=== PATIENT | female | born 1965 | race Caucasian/White ===

== ENCOUNTER → 2016-07-24 | Outpatient (CLI) | payer OTHER ==
[~2016-07-24] VITALS: Ht 160 cm; Wt 134.7 kg
[~2016-07-24] MED LIST: ADULT LOW DOSE81 MG PO; ALLOPURINOL100 MG PO; ASPIRIN NON IR325 MG PO; ASPIRIN PO; Allopurinol PO; BUTALB-APAP-CA1 EACH PO; CALCIUM CITRAT1 EA16 PO; CELEBREX50 MG PO; CIPRO500 M1 PO; CO Q-10100 MG PO; COLCRYS0.6 MG PO; CYMBALTA60 MG PO; DICLOFENAC POTA50 MG PO; DIOVAN HCT 81 TABLET PO; DIOVAN80 MG PO; DOCUSATE SODIU100 MG PO; DOXYCYCLINE HY100 MG PO; ERGOCALCIF50000 UNIT PO; FIORICET,ESG1 TABLET PO; FUROSEMIDE40 MG PO; GLUCOPHAGE1000 MG PO; HUMALOG100 UNIT/1 PO; HUMALOG100 UNIT/1 SC; HYDROCODON-ACE1 EAC5 PO; HYDROCODON-ACE1 EAC9 PO; INVOKANA300 MG PO; IRON PO; IRON18 MG PO; IRON325 M1 PO; IRON325 MG PO; LANTUS (UNITS)1 UNIT SQ; LANTUS 10100 UNITS/ SC; LANTUS 3 M100 UNITS/ SC; LANTUS 3 M100 UNITS1 SC; LEVEMIR100 UNIT/2 SC; LIDOCAINE700 MG TD; LYRICA300 MG PO; LYRICA50 MG PO; LYRICA75 MG PO; MAGNESIUM250 MG PO; MAXIMUM DAILY1 EAC1 PO; MELOXICAM15 MG PO; METFORMIN HCL1000 MG PO; MONTELUKAST SOD10 MG PO; MORPHINE SULFAT15 M1 PO; MORPHINE SULFAT30 M2 PO; NOVOLOG PE100 UNITS/ SC; OMEPRAZOLE20 MG PO; OMEPRAZOLE40 M1 PO; PRILOSEC OTC20 MG PO; PROVERA,CYCRIN10 MG PO; SENNA8.6 MG PO; TANZEUM30 MG/0.5 SC; TRADJENTA5 MG PO; VALSARTAN-HCTZ1 EACH PO; VITAMIN B-121000 MCG PO; VITAMIN D250000 UNIT PO; VITAMIN D31000 UNIT PO; VITAMIN D35000 UNIT PO; VITAMIN D5000 UNIT PO; VITAMIN D50000 UNI1 PO; ZESTORETIC,P1 TABLE1 PO; ZOCOR20 MG PO; ZOCOR40 MG PO; ZOCOR80 MG PO
[2016-07-24 12:09] LABS: POINT-OF-CARE METER ID UU13113694
[2016-07-24 13:13] LABS: POINT-OF-CARE METER ID UU13113819; POINT-OF-CARE USER ID 515036437
== END | disposition home or self-care (01) ==
LOC: AMB 06-12 12:00
PROVIDERS: Internal Medicine Gastroenterology
DX: K21.9 Gastro-esophageal reflux disease without esophagitis (principal); Z68.43 Body mass index [BMI] 50.0-59.9, adult; K29.70 Gastritis, unspecified, without bleeding; K22.70 Barrett's esophagus without dysplasia; E11.40 Type 2 diabetes mellitus with diabetic neuropathy, unspecified; E78.5 Hyperlipidemia, unspecified; I10 Essential (primary) hypertension; E55.9 Vitamin D deficiency, unspecified; Z80.9 Family history of malignant neoplasm, unspecified; Z82.49 Family history of ischemic heart disease and other diseases of the circulatory system; Z83.3 Family history of diabetes mellitus; Z84.1 Family history of disorders of kidney and ureter; Z79.82 Long term (current) use of aspirin; Z79.4 Long term (current) use of insulin; Z88.5 Allergy status to narcotic agent
CPT/HCPCS: 82948; 88305; 88342 TC; J3010

== ENCOUNTER 2016-08-11 22:35 | Emergency (ER) | payer OTHER ==
[~2016-08-11] VITALS: Ht 162.6 cm; Wt 135.0 kg
[2016-08-12 00:55] VITALS: BP 134/87
== END 2016-08-12 00:56 | disposition home or self-care (01) ==
LOC: EME 22:35 → EXP 22:35
DX: S93.402A Sprain of unspecified ligament of left ankle, initial encounter (principal); X50.1XXA Overexertion from prolonged static or awkward postures, initial encounter; W18.39XA Other fall on same level, initial encounter; I10 Essential (primary) hypertension; E11.9 Type 2 diabetes mellitus without complications; Z79.4 Long term (current) use of insulin
CPT/HCPCS: 73610; 99281; 99284

== ENCOUNTER 2018-01-01 13:14 | Emergency (ER) | payer OTHER ==
[~2018-01-01] VITALS: Ht 162.6 cm; Wt 94.0 kg
[2018-01-01 14:52] LABS: BASOPHIL (%) 0.4 % (0-1); EOSINOPHIL (%) 1.1 % (0-5); EOSINOPHIL COUNT 0.1 K/uL (0-0.3); HEMATOCRIT 39.7 % (36.0-46.0); HEMOGLOBIN 13.3 G/DL (11.9-15.5); IMMATURE GRANULOCYTE (%) 0.3 % (0.0-0.7); LYMPHOCYTE (%) 15.1 % (15-42); LYMPHOCYTE COUNT 1.6 K/uL (1.0-2.8); MCH 30.7 PG (29.0-34.0); MCHC 33.5 G/DL (30.0-36.0); MCV 91.7 FL (83-99); MONOCYTE (%) 4.9 % (3-12); MONOCYTE COUNT 0.5 K/uL (0-0.8); NEUTROPHIL (%) 78.2 % (45-76); NEUTROPHIL COUNT 8.5 K/uL (1.8-6.4); PLATELET COUNT 232 K/uL (156-360); RBC DIS.WIDTH-CV 12.8 % (11.8-14.6); RBC DIS.WIDTH-SD 43.3 % (39-53); RED BLOOD COUNT 4.33 M/uL (3.80-5.20); WHITE BLOOD COUNT 10.9 K/uL (4.1-10.2)
[2018-01-01 15:00] LABS: ALBUMIN 4.1 g/dL (3.2-4.8)
[2018-01-01 15:01] LABS: CHLORIDE 106 mEq/L (99-109); POTASSIUM 4.9 mEq/L (3.7-5.4); SODIUM 141 mEq/L (136-147)
[2018-01-01 15:03] LABS: GLUCOSE 111 mg/dL (70-99); TOTAL PROTEIN 7.3 g/dL (6.4-8.3)
[2018-01-01 15:05] LABS: TOTAL BILIRUBIN 0.5 mg/dL (0.0-1.0)
[2018-01-01 15:06] LABS: ALKALINE PHOSPHATASE 249 IU/L (3-129)
[2018-01-01 15:07] LABS: CREATININE 0.8 mg/dL (0.6-1.3); GFR ESTIMATE (CALCULATED) > 59 mL/min/
[2018-01-01 15:08] LABS: AST (GOT) 30 IU/L (2-34); UREA NITROGEN (BUN) 8 mg/dL (9-23)
[2018-01-01 15:10] LABS: ALT (GPT) 35 IU/L (3-49); LIPASE 20 U/L (1.0-51.0)
[2018-01-01 16:03] LABS: APPEARANCE CLEAR ((CLEAR)); BILIRUBIN NEGATIVE; BLOOD NEGATIVE; COLOR YELLOW ((YELLOW)); GLUCOSE (STRIP) NEGATIVE; KETONES NEGATIVE; LEUKOCYTES NEGATIVE; NITRITE NEGATIVE; PROTEIN (STRIP) NEGATIVE; SPECIFIC GRAVITY 1.021 (1.000-1.030); UROBILINOGEN 0.2 MG/DL (0.2-1.0)
[2018-01-01] MEDS ORDERED: NORCO 5/3251 TABLET PO (16:32)
[2018-01-01 17:02] VITALS: BP 120/86
== END 2018-01-01 17:06 | disposition home or self-care (01) ==
LOC: EXP 13:14 → EME 13:14 → EXP 17:06
PROVIDERS: Nurse Practitioner Family
DX: S80.02XA Contusion of left knee, initial encounter (principal); R55 Syncope and collapse; M25.552 Pain in left hip; W18.2XXA Fall in (into) shower or empty bathtub, initial encounter; Y93.E1 Activity, personal bathing and showering; E11.9 Type 2 diabetes mellitus without complications; E78.5 Hyperlipidemia, unspecified; I50.9 Heart failure, unspecified; F32.9 Major depressive disorder, single episode, unspecified; Z87.19 Personal history of other diseases of the digestive system; Z87.442 Personal history of urinary calculi; Z79.4 Long term (current) use of insulin; Z90.49 Acquired absence of other specified parts of digestive tract; Z88.5 Allergy status to narcotic agent
CPT/HCPCS: 73502; 73564; 80053; 81003; 83690; 85025; 93005; 99281; 99285